=== PATIENT | male | born 1940 | race Hispanic/Latino ===

== ENCOUNTER → 2017-12-19 | Outpatient (CLI) | payer OTHER ==
[~2017-12-19] MED LIST: AEC81 PO; CALC1TAB PO; CANA300T PO; DUTA0.5C15 PO; ESOM40CA PO; GADOBENATE DIMEGLUMINE 20 ML IV ONE; HUMLIS7525 SQ; LACT10SO PO; LEVO100T12 PO; LEVO5TAB13 PO; PARO-66 PO; PROP20TA7 PO; SOLI5 PO; TRAZ-144 PO
== END ==
LOC: RAH 07:47
PROVIDERS: ATTEND Physical Medicine & Rehabilitation
DX: M46.06 Spinal enthesopathy, lumbar region (principal); Z98.890 Other specified postprocedural states
CPT/HCPCS: 72158; A9577

== ENCOUNTER → 2018-04-15 | Outpatient (CLI) | payer OTHER ==
[~2018-04-15] MED LIST changes: -DUTA0.5C15 PO; +DUTA0.5C17 PO; -GADOBENATE DIMEGLUMINE 20 ML IV ONE; -TRAZ-144 PO; +TRAZ-185 PO
== END | disposition home or self-care (01) ==
LOC: OIH 16:22
PROVIDERS: ATTEND Family Medicine
DX: I10 Essential (primary) hypertension (principal); J84.10 Pulmonary fibrosis, unspecified
CPT/HCPCS: 71046

== ENCOUNTER → 2018-08-01 | Outpatient (CLI) | payer OTHER | END | disposition home or self-care (01) | LOC: RAH 10:40 | PROVIDERS: ATTEND Family Medicine | DX: I70.203 Unspecified atherosclerosis of native arteries of extremities, bilateral legs (principal) | CPT/HCPCS: 93925 ==

== ENCOUNTER → 2018-10-08 | Outpatient (CLI) | payer OTHER | END | disposition home or self-care (01) | LOC: RAH 12:28 | PROVIDERS: ATTEND Physical Medicine & Rehabilitation | DX: M48.02 Spinal stenosis, cervical region (principal); M25.78 Osteophyte, vertebrae; M47.892 Other spondylosis, cervical region | CPT/HCPCS: 72141 ==

== ENCOUNTER → 2018-11-29 | Outpatient (CLI) | payer OTHER ==
[~2018-11-29] MED LIST changes: +IOHEXOL-350 75 ML VIAL IV ONE
== END | disposition home or self-care (01) ==
LOC: RAH 08:19
PROVIDERS: ATTEND Internal Medicine Gastroenterology
DX: K74.60 Unspecified cirrhosis of liver (principal); I85.00 Esophageal varices without bleeding; K57.90 Diverticulosis of intestine, part unspecified, without perforation or abscess without bleeding; R18.8 Other ascites; I71.4 Abdominal aortic aneurysm, without rupture; I70.90 Unspecified atherosclerosis; M47.815 Spondylosis without myelopathy or radiculopathy, thoracolumbar region
CPT/HCPCS: 74178; Q9967

== ENCOUNTER 2019-03-21 07:56 | Day surgery (SDC) | payer OTHER ==
[2019-03-19 15:00] VITALS: BP 174/78
[2019-03-19 15:30] VITALS: BP 142/85
[2019-03-19 15:50] LABS: BASOPHILS % (AUTO) 0.7 % (0.0-5.0); EOSINOPHILS % (AUTO) 0.4 % (0.0-8.0); HEMATOCRIT 40.7 % (42-54); LYMPHOCYTES % (AUTO) 14.7 % (21.0-51.0); MEAN CORPUSCULAR HEMOGLOBIN 26.4 pg (27.0-33.0); MEAN CORPUSCULAR HGB CONC 31.6 g/dL (32.0-36.0); MEAN CORPUSCULAR VOLUME 83.5 fL (79-99); MONOCYTES % (AUTO) 7.3 % (3.0-13.0); NEUTROPHILS % (AUTO) 76.9 % (40.0-77.0); PLATELET COUNT (AUTO) 262 K/uL (130-400); RED BLOOD CELL COUNT(AUTO) 4.88 MIL/uL (4.50-6.20); WHITE BLOOD COUNT (AUTO) 4.8 K/uL (4.8-10.8)
[2019-03-19 15:56] LABS: CREATININE 1.1 mg/dL (0.5-1.5); POTASSIUM 3.7 mmol/L (3.5-5.1)
--- NOTE | 2019-03-19 16:32 | NUR ---
ABNORMAL EKG ABNORMAL EKG REPORTED TO DR. CARBONE. NO FURTHER ORDERS, MAY PROCEED.
[~2019-03-21] VITALS: Ht 181.6 cm; Wt 98.8 kg
[2019-03-21] VITALS (11 sets, daily range): BP systolic 132–159; BP diastolic 74–86
[~2019-03-21 07:56] MED LIST changes: -AEC81 PO; -CANA300T PO; +CEFAZOLIN SODIUM 1 GM VIAL IVP SCH; +CLOP75TA32 PO; +DAPA5TAB PO; +DEXA1TAB PO; +DULO30CA51 PO; -ESOM40CA PO; +FURO20TA4 PO; -HUMLIS7525 SQ; -IOHEXOL-350 75 ML VIAL IV ONE; -LACT10SO PO; +LENV4CAP PO; -LEVO5TAB13 PO; +ONDA8TAB11 PO; -PARO-66 PO; -SOLI5 PO; +TAMS-1 PO
[2019-03-21 08:21] LABS: INR 1.34 (0.85-1.15)
[2019-03-21] MEDS ORDERED: CEFAZOLIN SODIUM 1 GM VIAL ONE (11:18)
[2019-03-21] MEDS ORDERED: SODIUM CHLORIDE 0.9% 1000ML 1,000 ML IV ONE (11:18)
[2019-03-21] MEDS ORDERED: BACITRACIN 28.4 GM OINT TP ONE (11:33)
[2019-03-21] MEDS ORDERED: BUPIVACAINE/PF 0.25% 30ML VIAL IJ ONE (11:33)
[2019-03-21] MEDS ORDERED: LIDOCAINE HCL 1% 20 ML VIAL ONE (11:33)
--- NOTE | 2019-03-21 13:25 | NUR ---
post op received pt from [facility], pt awake and alert, no distress noted. denied any pain or discomforts. dressing to penis area dry and intact, [address] [place]. draining yellow urine, vs stable on arrival. fc leg bag applied and wharton cath care instructed to daughter/ spouse, verbalized understanding.
--- NOTE | 2019-03-21 14:25 | NUR ---
dc pt dc home via [facility],no distress noted. accompanied by spouse/daughter, fc in place with leg bag, dressing to penis dry and intact, vs stable. pt denied any pain or discomforts.
--- NOTE | 2019-03-21 14:25 | NUR ---
dc dc instructions given with rx, to spouse/daughter , instructed to f/u with dr. louis, on new med regimen and possible side effects, reinforced wharton care. and to remove dressing to penis on sat 03-22-19 and resume plavix on 03-24-19, verbalized understanding. piv removed. site asymptomatic, catheter intact.
== END 2019-03-21 14:25 | disposition home or self-care (01) ==
LOC: DAH 07:56
PROVIDERS: ATTEND Urology
DX: N47.1 Phimosis (principal); E11.9 Type 2 diabetes mellitus without complications; E03.9 Hypothyroidism, unspecified; K21.9 Gastro-esophageal reflux disease without esophagitis; Z95.1 Presence of aortocoronary bypass graft; Z98.890 Other specified postprocedural states; Z88.2 Allergy status to sulfonamides; Z88.8 Allergy status to other drugs, medicaments and biological substances; Z79.899 Other long term (current) drug therapy; Z85.05 Personal history of malignant neoplasm of liver; I11.0 Hypertensive heart disease with heart failure; I50.9 Heart failure, unspecified
CPT/HCPCS: 36415 ×2; 54161; 80048; 82948 ×2; 85025; 85610; 88304; 93005; A4218; A4344; A4510; A4600; J0690; J3490; J7030 ×2